=== PATIENT | male | born 1975 | race Native Hawaiian/Other Pacific Islander ===

== ENCOUNTER → 2019-02-01 | Outpatient (CLI) | payer OTHER ==
[2019-02-01 11:43] LABS: HEMATOCRIT 46.6 % (42.0-52.0); HEMOGLOBIN 16.1 gm/dL (14.0-18.0); MCH 30.5 pg (26.0-34.0); MCHC 34.5 g/dL (28.0-37.0); MCV 88.6 fL (80.0-100.0); RBC 5.27 mil/uL (4.50-6.00); RDW 13.3 % (10.5-14.5); WBC 6.8 thou/uL (4.0-11.0)
[2019-02-01 11:52] LABS: CALCIUM 9.1 mg/dL (8.5-10.1); POTASSIUM 3.8 mmol/L (3.5-5.1)
[2019-02-01 11:58] LABS: APTT 25.7 Seconds (24.5-32.8); PROTIME 9.9 Seconds (9.3-11.4)
--- NOTE | 2019-02-01 13:51 | NUR ---
PT RECEIVED FROM RADIOLOGY AFTER MYELOGRAM. DRESSING CLEAN DRY INTACT. PT DENIES PAIN OR HEADACHE. VSS. EATS LUNCH TRAY. DC'D WITH LUMBAR PUNCTURE/MYELOGRAM DC INSTRUCTIONS. DC'D PER WHEELCHAIR BY VOLUNTEERS
== END ==
LOC: RAD 10:26
PROVIDERS: Physical Medicine & Rehabilitation Sports Medicine
DX: M51.16 Intervertebral disc disorders with radiculopathy, lumbar region (principal); M51.37 Other intervertebral disc degeneration, lumbosacral region; M25.78 Osteophyte, vertebrae; M48.061 Spinal stenosis, lumbar region without neurogenic claudication